=== PATIENT | male | born 1945 | race Caucasian/White ===

== ENCOUNTER 2022-08-15 14:58 | Emergency (ER) | payer MEDICARE, OTHER ==
[~2022-08-15] VITALS: Ht 182.9 cm; Wt 86.0 kg
[2022-08-15 15:13] VITALS: BP 159/88
[2022-08-15 15:30] VITALS: BP 132/75
[2022-08-15 16:00] VITALS: BP 153/83
[2022-08-15 16:20] LABS: URINE BILIRUBIN - DIPSTICK NEGATIVE (NEGATIVE); URINE BLOOD DIPSTICK NEGATIVE (NEGATIVE); URINE COLOR YELLOW; URINE GLUCOSE - DIPSTICK 100 mg/dL (NEGATIVE); URINE KETONE NEGATIVE (NEGATIVE); URINE LEUK ESTERASE NEGATIVE (NEGATIVE); URINE PH 5.5 (4.5-8.0); URINE PROTEIN - DIPSTICK NEGATIVE (NEG-TRACE); URINE SPECIFIC GRAVITY 1.025; URINE UROBILINOGEN - DIPSTICK 0.2 E.U./dL (0.2)
[2022-08-15 16:22] LABS: URINE NITRITE - DIPSTICK NEGATIVE (Negative)
[2022-08-15 17:07] VITALS: BP 130/79
[2022-08-15] MEDS ORDERED: NAPROXEN500 MG PO (17:20)
[2022-08-15] MEDS ORDERED: METHOCARBAMOL500 MG PO (17:20)
[2022-08-15 17:30] VITALS: BP 129/72
[2022-08-15 17:52] VITALS: BP 129/72
== END 2022-08-15 17:59 | disposition home or self-care (01) ==
LOC: ED 14:58
PROVIDERS: Nurse Practitioner
DX: M54.50 Low back pain, unspecified (principal); E11.9 Type 2 diabetes mellitus without complications; E78.00 Pure hypercholesterolemia, unspecified; Z86.73 Personal history of transient ischemic attack (TIA), and cerebral infarction without residual deficits